=== PATIENT | male | born 1955 | race African-American/Black ===

== ENCOUNTER 2016-10-02 12:24 | Emergency (ER) | payer OTHER ==
[2016-10-02 13:21] LABS: BASOPHIL 0.8 % (0-2); EOSINOPHIL 2.9 % (0-5); HCT 51.5 % (42.0-52.0); HGB 18.3 g/dl (13.2-18.0); LYMPHOCYTE 35.5 % (15-48); MCH 29.2 pg (25.0-31.0); MCHC 35.5 g/dL (32.0-36.0); MCV 82.3 fL (78.0-100.0); MONOCYTE 6.4 % (0-12); MPV 10.8 fL (6.0-9.5); NEUTROPHIL 54.4 % (41-80); PLT 231 K/uL (150-400); RBC 6.26 M/uL (4.70-6.00); RDW 12.4 % (11.5-14.0); WBC 6.1 K/uL (4.0-10.5)
[2016-10-02 13:34] LABS: ALBUMIN 4.7 g/dL (3.5-5.0); BILIRUBIN - TOTAL 0.9 mg/dL (0.1-1.0); CREATININE 1.2 mg/dL (0.7-1.2); GLOBULIN (CALCULATION) 3.5 g/dL (2.2-4.2); POTASSIUM 4.9 mmol/L (3.5-5.1); TOTAL PROTEIN 8.2 g/dL (6.4-8.3)
[2016-10-02 14:59] LABS: BILIRUBIN NEGATIVE (NEGATIVE); BLOOD NEGATIVE Ery/uL (NEGATIVE); CLARITY CLEAR (CLEAR); COLOR YELLOW (YELLOW); GLUCOSE (U) 3+ mg/dL (NORMAL); KETONE (U) 1+ (SMALL) mg/dL (NEGATIVE); LEUKOCYTES NEGATIVE Leu/uL (NEGATIVE); NITRITE NEGATIVE (NEGATIVE); PROTEIN NEGATIVE (NEGATIVE); SPECIFIC GRAVITY <=1.005 (1.001-1.030); UROBILINOGEN 0.2 mg/dL (0.2-1.0)
[2016-10-02 16:09] LABS: CREATININE 1.2 mg/dL (0.7-1.2); POTASSIUM 5.1 mmol/L (3.5-5.1)
== END 2016-10-02 19:01 | disposition home or self-care (01) ==
LOC: FER 12:24
PROVIDERS: Emergency Medicine
DX: E11.65 Type 2 diabetes mellitus with hyperglycemia (principal); I10 Essential (primary) hypertension; Z79.84 Long term (current) use of oral hypoglycemic drugs; Z79.899 Other long term (current) drug therapy
CPT/HCPCS: 36415; 71010; 80048; 80053; 81003; 85025; 93005